=== PATIENT | female | born 1995 | race Caucasian/White ===

== ENCOUNTER 2017-01-31 16:22 | Emergency (ER) | payer OTHER, MEDICAID ==
[~2017-01-31] VITALS: Ht 162.6 cm; Wt 81.5 kg
[2017-01-31] MEDS ORDERED: LIDOCAINE HCL 2% JELLY 5ML ONE (16:56)
[2017-01-31] MEDS ORDERED: MORPHINE SULFATE 4 MG/ML CPJ (NOT FOR IM USE) IV ONE ×2 (16:57→17:30)
[2017-01-31] MEDS ORDERED: ONDANSETRON HCL 4MG/2ML VIAL ONE (16:58)
[2017-01-31] MEDS ORDERED: SODIUM CHLORIDE 0.9% 1,000 ML IV ONE (17:30)
[2017-01-31] MEDS ORDERED: ONDANSETRON HCL 4MG/2ML VIAL IV ONE (17:30)
[2017-01-31] MEDS ORDERED: LIDOCAINE HCL 2% JELLY 5ML TOP ONE (17:30)
[2017-01-31 17:40] VITALS: BP 106/58
[2017-01-31] MEDS ORDERED: SILVER SULFADIAZINE 1% CREAM 25GM TOP ONE (19:00)
== END 2017-01-31 21:46 | disposition home or self-care (01) ==
LOC: ER 19:13
DX: T21.03XA Burn of unspecified degree of upper back, initial encounter (principal); T79.8XXA Other early complications of trauma, initial encounter; X19.XXXA Contact with other heat and hot substances, initial encounter; Y93.89 Activity, other specified; Y92.89 Other specified places as the place of occurrence of the external cause; R06.02 Shortness of breath; R03.0 Elevated blood-pressure reading, without diagnosis of hypertension; M54.89 Other dorsalgia; G89.29 Other chronic pain
CPT/HCPCS: 16020; 96361; 96374; 96375; 99285; A4217; J2270; J2405; J7030; Z7610

== ENCOUNTER 2017-02-01 20:52 | Emergency (ER) | payer OTHER ==
[~2017-02-01] VITALS: Ht 162.6 cm; Wt 82.0 kg
[2017-02-01 20:55] VITALS: BP 126/63
[2017-02-01] MEDS ORDERED: BACITRACIN ZINC OINT UDPKT TOP ONE ×2 (22:30→22:45)
== END 2017-02-01 23:07 | disposition home or self-care (01) ==
LOC: ER 22:00
DX: Z48.00 Encounter for change or removal of nonsurgical wound dressing (principal)
CPT/HCPCS: 99283; Z7610

== ENCOUNTER 2017-02-04 15:27 | Emergency (ER) | payer OTHER, MEDICAID ==
[~2017-02-04] VITALS: Ht 162.6 cm; Wt 81.5 kg
[2017-02-04 16:00] VITALS: BP 117/70
[2017-02-04] MEDS ORDERED: CEFTRIAXONE SODIUM 250 MG/VIAL IM ONE (19:30)
[2017-02-04] MEDS ORDERED: SILVER SULFADIAZINE 1% CREAM 25GM TOP ONE (19:30)
[2017-02-04] MEDS ORDERED: TETANUS, DIPHTHERIA, PERTUSSIS VAC/PF 0.5ML (>7YR OLD) IM ONE (19:30)
== END 2017-02-04 20:23 | disposition home or self-care (01) ==
LOC: ER 16:24
DX: T21.24XD Burn of second degree of lower back, subsequent encounter (principal); X08.8XXD Exposure to other specified smoke, fire and flames, subsequent encounter
CPT/HCPCS: 16020; 90471; 90715; 96372; 99284; J0696; Z7610

== ENCOUNTER 2017-08-23 13:12 | Emergency (ER) | payer OTHER, MEDICAID ==
[~2017-08-23] VITALS: Ht 162.6 cm; Wt 84.0 kg
[2017-08-23] MEDS ORDERED: SODIUM CHLORIDE 0.9% 1,000 ML IV ONE (18:23)
[2017-08-23] MEDS ORDERED: KETOROLAC 30MG/ML VIAL IV STA (18:23)
[2017-08-23 18:40] LABS: BASOPHILS % 0.4 % (0.0-2.0); EOSINOPHILS % 1.3 % (0.0-5.0); HEMATOCRIT. 34.1 % (36.0-48.0); HEMOGLOBIN. 11.1 g/dL (12.0-16.0); LYMPHOCYTES % 30.3 % (20.0-50.0); MEAN CORPUSCULAR HEMOGLOBIN 25.1 pg (28.0-32.0); MEAN CORPUSCULAR VOLUME 76.8 fL (81.0-99.0); MEAN PLATELET VOLUME 7.7 fl (7.4-10.4); MONOCYTES % 7.4 % (2.0-8.0); NEUTROPHILS % 60.6 % (40.0-76.0); PLATELET 329 x1000/uL (130-400); RED BLOOD CELL COUNT 4.43 mill/uL (4.2-5.4); RED CELL DISTRIBUTION WIDTH 17.8 % (11.6-14.6)
[2017-08-23 18:45] LABS: CHLORIDE 103 mEq/L (98-107)
[2017-08-23 18:47] LABS: PROTHROMBIN TIME 10.6 sec (9.4-11.6)
[2017-08-23 18:49] LABS: CARBON DIOXIDE 27 mEq/L (21-32)
[2017-08-23 18:50] LABS: HCG SCREEN NEGATIVE
[2017-08-23 18:55] LABS: CLARITY URINE CLOUDY (CLEAR); COLOR URINE YELLOW (YELLOW); GLUCOSE URINE NEGATIVE (NEGATIVE); KETONES URINE NEGATIVE (NEGATIVE); LEUKOCYTE ESTERASE URINE 2+ (NEGATIVE); NITRITE URINE NEGATIVE (NEGATIVE); OCCULT BLOOD URINE NEGATIVE (NEGATIVE); PH URINE 5.5 (4.5-8.0); PROTEIN URINE NEGATIVE (NEGATIVE); SPECIFIC GRAVITY URINE 1.017 (1.005-1.030); UROBILINOGEN URINE 0.2 E.U./dL (0.2-1.0)
[2017-08-23 19:09] LABS: *AMPHETAMINES SCREEN URINE NEGATIVE (NEGATIVE); *BARBITURATES SCREEN URINE NEGATIVE (NEGATIVE); *BENZODIAZEPINES SCREEN URINE NEGATIVE (NEGATIVE); *COCAINE SCREEN URINE NEGATIVE (NEGATIVE); CANNABINOID URINE SCREEN NEGATIVE (NEGATIVE); METHADONE URINE SCREEN NEGATIVE (NEGATIVE); OPIATES URINE SCREEN NEGATIVE (NEGATIVE); PHENCYCLIDINE URINE SCREEN NEGATIVE (NEGATIVE)
[2017-08-23] MEDS ORDERED: KETOROLAC 30MG/ML VIAL IM ONE (20:30)
[2017-08-23 21:43] VITALS: BP 117/68
== END 2017-08-23 21:45 | disposition home or self-care (01) ==
LOC: ER 13:43
DX: N76.0 Acute vaginitis (principal)
CPT/HCPCS: 36415; 76830; 76856; 80053; 80305; 81001; 83690; 84703; 85025; 85610; 87210; 96361; 96374; 99285; J1885; J7030

== ENCOUNTER 2017-11-19 22:56 | Emergency (ER) | payer OTHER, MEDICAID ==
[~2017-11-19] VITALS: Ht 162.6 cm; Wt 86.0 kg
[2017-11-19 23:50] VITALS: BP 120/71
== END 2017-11-20 01:24 | disposition home or self-care (01) ==
LOC: ER 22:56
DX: J11.1 Influenza due to unidentified influenza virus with other respiratory manifestations (principal)
CPT/HCPCS: 99283

== ENCOUNTER 2018-01-07 22:06 | Emergency (ER) | payer OTHER, MEDICAID ==
[~2018-01-07] VITALS: Ht 162.6 cm; Wt 84.0 kg
[2018-01-08 00:47] LABS: CLARITY URINE CLEAR (CLEAR); COLOR URINE YELLOW (YELLOW); KETONES URINE NEGATIVE (NEGATIVE); LEUKOCYTE ESTERASE URINE TRACE (NEGATIVE); NITRITE URINE POSITIVE (NEGATIVE); OCCULT BLOOD URINE NEGATIVE (NEGATIVE); PROTEIN URINE NEGATIVE (NEGATIVE); UROBILINOGEN URINE 0.2 E.U./dL (0.2-1.0)
[2018-01-08 01:00] VITALS: BP 115/75
[2018-01-08] MEDS ORDERED: PHENAZOPYRIDINE HCL 200MG TABLET PO ONE (01:00)
[2018-01-08] MEDS ORDERED: CEPHALEXIN 500MG CAPSULE PO ONE (01:00)
== END 2018-01-08 01:13 | disposition home or self-care (01) ==
LOC: ER 22:06
DX: N39.0 Urinary tract infection, site not specified (principal)
CPT/HCPCS: 81003; 99283

== ENCOUNTER 2018-04-30 23:29 | Emergency (ER) | payer OTHER, MEDICAID ==
[~2018-04-30] VITALS: Ht 162.6 cm; Wt 82.0 kg
[2018-05-01] MEDS ORDERED: ACETAMINOPHEN 325MG TABLET PO ONE (03:00)
[2018-05-01 03:28] LABS: CLARITY URINE CLEAR (CLEAR); COLOR URINE YELLOW (YELLOW); KETONES URINE NEGATIVE (NEGATIVE); LEUKOCYTE ESTERASE URINE NEGATIVE (NEGATIVE); NITRITE URINE NEGATIVE (NEGATIVE); OCCULT BLOOD URINE NEGATIVE (NEGATIVE); PROTEIN URINE NEGATIVE (NEGATIVE); SPECIFIC GRAVITY URINE 1.007 (1.005-1.030); UROBILINOGEN URINE 0.2 E.U./dL (0.2-1.0)
[2018-05-01] MEDS ORDERED: IBUPROFEN 600MG TABLET PO ONE (03:30)
[2018-05-01 05:44] VITALS: BP 111/65
== END 2018-05-01 05:50 | disposition home or self-care (01) ==
LOC: ER 23:29
DX: R51 Headache (principal)
CPT/HCPCS: 81003; 81025; 99283; Z7610

== ENCOUNTER 2018-05-19 19:57 | Emergency (ER) | payer OTHER, MEDICAID ==
[~2018-05-19] VITALS: Ht 162.6 cm; Wt 84.0 kg
[2018-05-19] MEDS ORDERED: SODIUM CHLORIDE 0.9% 1,000 ML IV ONE (20:59)
[2018-05-19] MEDS ORDERED: ONDANSETRON HCL 4MG/2ML VIAL IV ONE (21:00)
[2018-05-19 22:26] LABS: BASOPHILS % 0.3 % (0.0-2.0); EOSINOPHILS % 1.4 % (0.0-5.0); HEMATOCRIT. 34.6 % (36.0-48.0); HEMOGLOBIN. 11.4 g/dL (12.0-16.0); LYMPHOCYTES % 25.6 % (20.0-50.0); MEAN CORPUSCULAR HEMOGLOBIN 25.9 pg (28.0-32.0); MEAN CORPUSCULAR VOLUME 78.7 fL (81.0-99.0); MEAN PLATELET VOLUME 7.6 fl (7.4-10.4); MONOCYTES % 10.1 % (2.0-8.0); NEUTROPHILS % 62.6 % (40.0-76.0); PLATELET 387 x1000/uL (130-400); RED BLOOD CELL COUNT 4.39 mill/uL (4.2-5.4)
[2018-05-19 22:28] LABS: CHLORIDE 107 mEq/L (98-107)
[2018-05-19 22:51] LABS: B-HCG QUANTITATIVE 2390 mIU/mL (<3)
[2018-05-19 23:38] LABS: CLARITY URINE CLEAR (CLEAR); COLOR URINE YELLOW (YELLOW); KETONES URINE 1+ (NEGATIVE); LEUKOCYTE ESTERASE URINE NEGATIVE (NEGATIVE); NITRITE URINE NEGATIVE (NEGATIVE); OCCULT BLOOD URINE NEGATIVE (NEGATIVE); PH URINE 5.5 (4.5-8.0); PROTEIN URINE NEGATIVE (NEGATIVE); SPECIFIC GRAVITY URINE 1.024 (1.005-1.030); UROBILINOGEN URINE 0.2 E.U./dL (0.2-1.0)
[2018-05-20 00:23] VITALS: BP 117/68
== END 2018-05-20 05:46 | disposition home or self-care (01) ==
LOC: ER 05-20 04:54
DX: O03.9 Complete or unspecified spontaneous abortion without complication (principal)
CPT/HCPCS: 36415; 76705; 76801; 76817; 80053; 81003; 81025; 84702; 85025; 96374; 99285; J2405; J7030; X7700; Z7610

== ENCOUNTER 2018-05-22 16:59 | Emergency (ER) | payer OTHER, MEDICAID ==
[~2018-05-22] VITALS: Ht 162.6 cm; Wt 84.0 kg
[2018-05-22 18:14] LABS: BASOPHILS % 0.4 % (0.0-2.0); EOSINOPHILS % 1.5 % (0.0-5.0); HEMATOCRIT. 34.1 % (36.0-48.0); HEMOGLOBIN. 11.2 g/dL (12.0-16.0); MEAN CORPUSCULAR HEMOGLOBIN 25.6 pg (28.0-32.0); MEAN CORPUSCULAR VOLUME 78.1 fL (81.0-99.0); MEAN PLATELET VOLUME 7.4 fl (7.4-10.4); MONOCYTES % 9.3 % (2.0-8.0); NEUTROPHILS % 63.8 % (40.0-76.0); PLATELET 389 x1000/uL (130-400); RED BLOOD CELL COUNT 4.37 mill/uL (4.2-5.4); RED CELL DISTRIBUTION WIDTH 17.4 % (11.6-14.6)
[2018-05-22 18:20] LABS: CHLORIDE 104 mEq/L (98-107)
[2018-05-22 18:24] LABS: CLARITY URINE CLEAR (CLEAR); COLOR URINE YELLOW (YELLOW); KETONES URINE NEGATIVE (NEGATIVE); LEUKOCYTE ESTERASE URINE 1+ (NEGATIVE); NITRITE URINE NEGATIVE (NEGATIVE); OCCULT BLOOD URINE NEGATIVE (NEGATIVE); PROTEIN URINE NEGATIVE (NEGATIVE); SPECIFIC GRAVITY URINE 1.015 (1.005-1.030); UROBILINOGEN URINE 0.2 E.U./dL (0.2-1.0)
[2018-05-22 18:44] LABS: B-HCG QUANTITATIVE 7562 mIU/mL (<3)
[2018-05-22] MEDS ORDERED: FAMOTIDINE 20MG TABLET PO ONE (19:00)
[2018-05-22] MEDS ORDERED: ACETAMINOPHEN 325MG TABLET PO ONE (19:00)
[2018-05-22] MEDS ORDERED: MAGNESIUM/ALUMINUM HYDROXIDE/SIMETHICONE 30ML UDC PO ONE (19:00)
[2018-05-22 21:40] VITALS: BP 120/59
== END 2018-05-22 21:50 | disposition home or self-care (01) ==
LOC: ER 16:59
DX: O20.0 Threatened abortion (principal); O23.41 Unspecified infection of urinary tract in pregnancy, first trimester; O99.011 Anemia complicating pregnancy, first trimester; O26.891 Other specified pregnancy related conditions, first trimester; R10.13 Epigastric pain; R03.0 Elevated blood-pressure reading, without diagnosis of hypertension; Z3A.00 Weeks of gestation of pregnancy not specified
CPT/HCPCS: 36415; 76801; 80053; 81003; 81025; 84702; 85025; 85610; 86850; 86900; 99285

== ENCOUNTER 2018-05-27 22:14 | Emergency (ER) | payer OTHER, MEDICAID ==
[~2018-05-27] VITALS: Ht 162.6 cm; Wt 84.0 kg
[2018-05-28] MEDS ORDERED: ACETAMINOPHEN 325MG TABLET PO STA (05:06)
[2018-05-28] MEDS ORDERED: SODIUM CHLORIDE 0.9% 1,000 ML IV ONE (05:06)
[2018-05-28 05:41] LABS: CLARITY URINE CLEAR (CLEAR); COLOR URINE YELLOW (YELLOW); KETONES URINE NEGATIVE (NEGATIVE); LEUKOCYTE ESTERASE URINE NEGATIVE (NEGATIVE); NITRITE URINE NEGATIVE (NEGATIVE); OCCULT BLOOD URINE NEGATIVE (NEGATIVE); PROTEIN URINE NEGATIVE (NEGATIVE); SPECIFIC GRAVITY URINE 1.021 (1.005-1.030); UROBILINOGEN URINE 0.2 E.U./dL (0.2-1.0)
[2018-05-28 07:10] LABS: BASOPHILS % 0.5 % (0.0-2.0); EOSINOPHILS % 4.7 % (0.0-5.0); HEMATOCRIT. 32.2 % (36.0-48.0); HEMOGLOBIN. 10.8 g/dL (12.0-16.0); LYMPHOCYTES % 23.8 % (20.0-50.0); MEAN CORPUSCULAR HEMOGLOBIN 26.1 pg (28.0-32.0); MEAN CORPUSCULAR VOLUME 77.4 fL (81.0-99.0); MEAN PLATELET VOLUME 7.4 fl (7.4-10.4); MONOCYTES % 9.6 % (2.0-8.0); NEUTROPHILS % 61.4 % (40.0-76.0); PLATELET 343 x1000/uL (130-400); RED BLOOD CELL COUNT 4.16 mill/uL (4.2-5.4)
[2018-05-28 07:17] LABS: CHLORIDE 105 mEq/L (98-107)
[2018-05-28 07:40] LABS: B-HCG QUANTITATIVE 29044 mIU/mL (<3)
[2018-05-28 08:38] VITALS: BP 120/73
== END 2018-05-28 08:39 | disposition home or self-care (01) ==
LOC: ER 22:14
DX: O20.0 Threatened abortion (principal); R51 Headache; R42 Dizziness and giddiness; Z3A.01 Less than 8 weeks gestation of pregnancy
CPT/HCPCS: 36415; 76801; 76817; 80053; 81003; 81025; 83690; 84702; 85025; 93005; 96360; 99285; J7030

== ENCOUNTER 2018-08-11 17:52 | Emergency (ER) | payer OTHER, MEDICAID ==
[~2018-08-11] VITALS: Ht 167.6 cm; Wt 83.0 kg
[2018-08-11] MEDS ORDERED: ACETAMINOPHEN 325MG TABLET PO STA (20:53)
[2018-08-11] MEDS ORDERED: SODIUM CHLORIDE 0.9% 1,000 ML IV ONE (20:53)
[2018-08-11 21:34] LABS: BASOPHILS % 0.2 % (0.0-2.0); EOSINOPHILS % 0.4 % (0.0-5.0); HEMATOCRIT. 30.4 % (36.0-48.0); LYMPHOCYTES % 20.6 % (20.0-50.0); MEAN CORPUSCULAR VOLUME 75.7 fL (81.0-99.0); MEAN PLATELET VOLUME 7.6 fl (7.4-10.4); MONOCYTES % 6.2 % (2.0-8.0); NEUTROPHILS % 72.6 % (40.0-76.0); PLATELET 393 x1000/uL (130-400); RED BLOOD CELL COUNT 4.01 mill/uL (4.2-5.4); RED CELL DISTRIBUTION WIDTH 16.4 % (11.6-14.6)
[2018-08-11 21:37] LABS: CLARITY URINE CLEAR (CLEAR); COLOR URINE YELLOW (YELLOW); KETONES URINE NEGATIVE (NEGATIVE); LEUKOCYTE ESTERASE URINE TRACE (NEGATIVE); NITRITE URINE NEGATIVE (NEGATIVE); OCCULT BLOOD URINE NEGATIVE (NEGATIVE); PROTEIN URINE NEGATIVE (NEGATIVE); SPECIFIC GRAVITY URINE 1.003 (1.005-1.030); UROBILINOGEN URINE 0.2 E.U./dL (0.2-1.0)
[2018-08-11 21:40] LABS: INR 0.9; PROTHROMBIN TIME 9.2 sec (9.1-11.1)
[2018-08-11 21:42] LABS: HCG SCREEN POSITIVE
[2018-08-11 21:44] LABS: CHLORIDE 105 mEq/L (98-107)
[2018-08-12 01:02] VITALS: BP 98/56
== END 2018-08-12 01:02 | disposition home or self-care (01) ==
LOC: ER 17:52 → CANBEDREQ 08-12 08:42
DX: O26.892 Other specified pregnancy related conditions, second trimester (principal); R10.32 Left lower quadrant pain; R74.0 Nonspecific elevation of levels of transaminase and lactic acid dehydrogenase [LDH]; O99.012 Anemia complicating pregnancy, second trimester; Z3A.17 17 weeks gestation of pregnancy
CPT/HCPCS: 36415; 76770; 76805; 80053; 81003; 83605; 84145; 84703; 85025; 85610; 86850; 86900; 86901; 87040; 87077; 87086; 87186; 93005; 99285; J7030; Z7610

== ENCOUNTER 2018-10-20 19:00 | Observation (INO) | payer OTHER, MEDICAID ==
[~2018-10-20] VITALS: Ht 162.6 cm; Wt 91.6 kg
[2018-10-20] MEDS ORDERED: LACTATED RINGERS 1,000 ML IV ONE (20:00)
[2018-10-20] MEDS ORDERED: ACETAMINOPHEN 500MG TABLET PO ONE (20:00)
[2018-10-20] MEDS ORDERED: NITR100C PO (20:11)
[2018-10-20] MEDS ORDERED: PSEU-207 PO (20:11)
[2018-10-20] MEDS ORDERED: AM500 PO (20:11)
[2018-10-20] MEDS ORDERED: PNV1TABL50 PO (20:11)
[2018-10-20 21:11] LABS: CLARITY URINE CLEAR (CLEAR); COLOR URINE YELLOW (YELLOW); KETONES URINE NEGATIVE (NEGATIVE); LEUKOCYTE ESTERASE URINE 2+ (NEGATIVE); NITRITE URINE NEGATIVE (NEGATIVE); OCCULT BLOOD URINE TRACE (NEGATIVE); PROTEIN URINE NEGATIVE (NEGATIVE); SPECIFIC GRAVITY URINE 1.006 (1.005-1.030); UROBILINOGEN URINE 0.2 E.U./dL (0.2-1.0)
[2018-10-21] MEDS ORDERED: AMOXICILLIN 500 MG CAPSULE PO SCH (09:00)
== END 2018-10-20 23:20 | disposition home or self-care (01) ==
LOC: L&D 19:00
PROVIDERS: ADMIT Obstetrics & Gynecology; ATTEND Obstetrics & Gynecology
DX: O26.892 Other specified pregnancy related conditions, second trimester (principal); M54.5 Low back pain; Z3A.27 27 weeks gestation of pregnancy
CPT/HCPCS: 81003; 99281; G0378; 96360; 96361

== ENCOUNTER 2019-01-08 19:25 | Observation (INO) | payer MEDICAID ==
[~2019-01-08] VITALS: Ht 162.6 cm; Wt 94.3 kg
[~2019-01-08 19:25] MED LIST: AM500 PO; NITR100C PO; PNV1TABL50 PO; PSEU-207 PO
[2019-01-08] MEDS ORDERED: IRON-26 MT (21:03)
[2019-01-08] MEDS ORDERED: PREN-182 MT (21:03)
[2019-01-08] MEDS ORDERED: LACTATED RINGERS 1,000 ML IV SCH (21:33)
[2019-01-08 22:49] LABS: CLARITY URINE CLEAR (CLEAR); COLOR URINE YELLOW (YELLOW); KETONES URINE NEGATIVE (NEGATIVE); LEUKOCYTE ESTERASE URINE 1+ (NEGATIVE); NITRITE URINE NEGATIVE (NEGATIVE); OCCULT BLOOD URINE NEGATIVE (NEGATIVE); PROTEIN URINE NEGATIVE (NEGATIVE); SPECIFIC GRAVITY URINE 1.011 (1.005-1.030); UROBILINOGEN URINE 0.2 E.U./dL (0.2-1.0)
== END 2019-01-09 00:30 | disposition home or self-care (01) ==
LOC: MERGE 19:25 → 8 EST LDRP 19:25
PROVIDERS: ADMIT Obstetrics & Gynecology; ATTEND Obstetrics & Gynecology
DX: O36.8130 Decreased fetal movements, third trimester, not applicable or unspecified (principal); O26.893 Other specified pregnancy related conditions, third trimester; R10.30 Lower abdominal pain, unspecified; M54.5 Low back pain; Z3A.38 38 weeks gestation of pregnancy
CPT/HCPCS: 81003; 99281; G0378; 96372

== ENCOUNTER 2019-01-18 14:31 | Observation (INO) | payer OTHER, MEDICAID ==
[~2019-01-18] VITALS: Ht 162.6 cm; Wt 96.6 kg
[~2019-01-18 14:31] MED LIST changes: +IRON-26 MT; +PREN-182 MT
== END 2019-01-18 16:00 | disposition home or self-care (01) ==
LOC: MERGE 14:31 → 8 EST LDRP 14:31
PROVIDERS: ADMIT Specialist; ATTEND Specialist
DX: O26.893 Other specified pregnancy related conditions, third trimester (principal); R10.30 Lower abdominal pain, unspecified; M54.5 Low back pain; R42 Dizziness and giddiness; R51 Headache; R06.02 Shortness of breath; R35.0 Frequency of micturition; N89.8 Other specified noninflammatory disorders of vagina; O48.0 Post-term pregnancy; Z3A.40 40 weeks gestation of pregnancy
CPT/HCPCS: 99281; G0378

== ENCOUNTER 2019-01-19 07:15 | Inpatient (IN) | payer MEDICAID ==
[~2019-01-19] VITALS: Ht 160 cm; Wt 96.6 kg
[2019-01-19] MEDS ORDERED: DEXT 5%/LR + PITOCIN 20UNITS/L 1,000 ML IV SCH ×2 (07:59→09:55)
[2019-01-19] MEDS ORDERED: NALOXONE HCL 0.4 MG/ML 1ML VIAL IM PRN (08:00)
[2019-01-19] MEDS ORDERED: LIDOCAINE HCL 1% 20ML VIAL (Pyxis) INJ INFIL SCH (08:00)
[2019-01-19] MEDS ORDERED: METHYLERGONOVINE MALEATE 0.2 MG/ML IM PRN (08:00)
[2019-01-19] MEDS ORDERED: BUTORPHANOL TARTRATE 2 MG/ML VIAL IV PRN (08:00)
[2019-01-19] MEDS ORDERED: CARBOPROST TROMETHAMINE 250 MCG/ML AMPUL IM PRN (08:00)
[2019-01-19] MEDS: LACTATED RINGERS 1,000 ML IV SCH ×2 (08:33→09:02)
[2019-01-19 08:35] LABS: BASOPHILS % 0.4 % (0.0-2.0); EOSINOPHILS % 0.2 % (0.0-5.0); LYMPHOCYTES % 13.4 % (20.0-50.0); MEAN CORPUSCULAR HEMOGLOBIN 18.5 pg (28.0-32.0); MEAN CORPUSCULAR VOLUME 60.4 fL (81.0-99.0); MEAN PLATELET VOLUME 8.8 fl (7.4-10.4); MONOCYTES % 6.3 % (2.0-8.0); NEUTROPHILS % 79.7 % (40.0-76.0); PLATELET 359 x1000/uL (130-400); RED BLOOD CELL COUNT 4.31 mill/uL (4.2-5.4); RED CELL DISTRIBUTION WIDTH 19.7 % (11.6-14.6)
[2019-01-19 08:44] LABS: INR 0.9; PARTIAL THROMBOPLASTIN TIME 25.4 sec (23.4-31.0); PROTHROMBIN TIME 9.3 sec (9.1-11.1)
[2019-01-19] MEDS ORDERED: FENTANYL CITRATE/PF 50MCG/ML 2ML VIAL ONE (08:58)
[2019-01-19] MEDS ORDERED: SODIUM CHLORIDE 0.9% 10ML VIAL ONE (08:58)
[2019-01-19] MEDS ORDERED: BUPIVACAINE HCL/PF 0.25% (2.5MG/ML) 10ML ONE (08:58)
[2019-01-19] MEDS ORDERED: BUPIVACAINE HCL/NS/PF EPIDURAL 100 ML in SODIUM CHLORIDE 0.9% 100 ML EP NR (09:00)
[2019-01-19] MEDS ORDERED: BUPIVACAINE HCL/NS/PF EPIDURAL 100 ML EP ONE (09:02)
[2019-01-19 09:08] LABS: PLATELET ESTIMATE NORMAL
[2019-01-19] MEDS ORDERED: INFLUENZA VIRUS VACCINE(AFLURIA) 0.5ML SYR IM ONE (10:00)
[2019-01-19] MEDS ORDERED: RHO(D) IMMUNE GLOBULIN 300 MCG/SYR IM PRN (10:00)
[2019-01-19] MEDS ORDERED: TETANUS, DIPHTHERIA, PERTUSSIS VAC/PF 0.5ML (>7YR OLD) IM ONE (10:00)
[2019-01-19] MEDS ORDERED: HEMORRHOIDAL SUPP PR PRN (10:00)
[2019-01-19] MEDS ORDERED: IBUPROFEN 400MG TABLET PO PRN (10:00)
[2019-01-19] MEDS ORDERED: DIPHENHYDRAMINE 25MG CAPSULE PO PRN (10:00)
[2019-01-19] MEDS ORDERED: BISACODYL 10MG SUPP PR PRN (10:00)
[2019-01-19] MEDS ORDERED: GLYCERIN/WITCH HAZEL LEAF MEDICATED PAD TOP PRN (10:00)
[2019-01-19 10:15] LABS: BG BASE EXCESS -4.5 mmol/L (-2.0-2.0); BG BASE EXCESS -6.8 mmol/L (-2.0-2.0); BG FRACTION INSPIRED OXYGEN 21; BG HCO3 ACT 20.1 mmol/L (22.0-26.0); BG HCO3 ACT 23.2 mmol/L (22.0-26.0); BG PCO2 45.1 mmHg (35.0-45.0); BG PCO2 52.6 mmHg (35.0-45.0); BG PH 7.262 (7.350-7.450); BG PH 7.266 (7.350-7.450); BG PO2 < 30.3 mmHg (75.0-100.0); BG SAMPLE SITE CORD; BG VENT MODE ROOM AIR
[2019-01-19 12:00] VITALS: BP 103/60
[2019-01-19 12:45] VITALS: BP 110/65
[2019-01-19 12:55] LABS: HEPATITIS B SURFACE ANTIGEN NEGATIVE
[2019-01-19] MEDS: IBUPROFEN 800MG TABLET PO PRN ×2 (13:16→20:05)
[2019-01-19] MEDS: LANOLIN OINT 0.25 GM TUBE TOP PRN (13:16)
[2019-01-19] MEDS: SIMETHICONE 80MG TABLET CHEW PO SCH ×3 (13:17→20:04)
[2019-01-19] MEDS: BENZOCAINE/LANOLIN/ALOE VERA SPRAY TOP PRN (13:17)
[2019-01-19 15:04] VITALS: BP 109/66
[2019-01-19 16:45] LABS: CLARITY URINE CLOUDY (CLEAR); COLOR URINE YELLOW (YELLOW); KETONES URINE NEGATIVE (NEGATIVE); LEUKOCYTE ESTERASE URINE TRACE (NEGATIVE); NITRITE URINE NEGATIVE (NEGATIVE); OCCULT BLOOD URINE 3+ (NEGATIVE); PROTEIN URINE 1+ (NEGATIVE); UROBILINOGEN URINE 0.2 E.U./dL (0.2-1.0)
[2019-01-19 17:11] LABS: *AMPHETAMINES SCREEN URINE NEGATIVE (NEGATIVE); *BARBITURATES SCREEN URINE NEGATIVE (NEGATIVE); *BENZODIAZEPINES SCREEN URINE NEGATIVE (NEGATIVE); *COCAINE SCREEN URINE NEGATIVE (NEGATIVE); METHADONE URINE SCREEN NEGATIVE (NEGATIVE); OPIATES URINE SCREEN NEGATIVE (NEGATIVE)
[2019-01-19 17:12] LABS: CANNABINOID URINE SCREEN NEGATIVE (NEGATIVE); PHENCYCLIDINE URINE SCREEN NEGATIVE (NEGATIVE)
[2019-01-19 20:00] VITALS: BP 108/57
[2019-01-19] MEDS: DOCUSATE SODIUM 100MG CAPSULE PO SCH (20:04)
[2019-01-20] MEDS: ACETAMINOPHEN WITH CODEINE 300/30MG TABLET PO PRN ×2 (02:21→19:47)
[2019-01-20 04:00] VITALS: BP 104/62
[2019-01-20 07:15] LABS: BASOPHILS % 0.5 % (0.0-2.0); EOSINOPHILS % 0.3 % (0.0-5.0); HEMATOCRIT. 22.1 % (36.0-48.0); LYMPHOCYTES % 18.8 % (20.0-50.0); MEAN CORPUSCULAR HEMOGLOBIN 18.8 pg (28.0-32.0); MEAN CORPUSCULAR VOLUME 60.7 fL (81.0-99.0); MEAN PLATELET VOLUME 9.3 fl (7.4-10.4); MONOCYTES % 5.1 % (2.0-8.0); NEUTROPHILS % 75.3 % (40.0-76.0); PLATELET 322 x1000/uL (130-400); RED BLOOD CELL COUNT 3.64 mill/uL (4.2-5.4); RED CELL DISTRIBUTION WIDTH 19.9 % (11.6-14.6)
[2019-01-20 08:36] LABS: HEMOGLOBIN. 6.8 g/dL (12.0-16.0)
[2019-01-20] MEDS: FERROUS SULFATE 325MG TABLET PO SCH ×3 (09:19→19:46)
[2019-01-20] MEDS: PRENATAL VIT/FE FUMARATE/FA TABLET PO SCH (09:19)
[2019-01-20] MEDS: IBUPROFEN 800MG TABLET PO PRN ×2 (09:19→16:11)
[2019-01-20 10:02] VITALS: BP 114/60
[2019-01-20] MEDS: SIMETHICONE 80MG TABLET CHEW PO SCH ×3 (13:00→22:29)
[2019-01-20 15:50] VITALS: BP 103/64
[2019-01-20] MEDS: DOCUSATE SODIUM 100MG CAPSULE PO SCH (19:46)
[2019-01-20 20:30] VITALS: BP 105/68
[2019-01-21 04:00] VITALS: BP 112/66
[2019-01-21] MEDS: IBUPROFEN 800MG TABLET PO PRN (08:25)
[2019-01-21] MEDS: LANOLIN OINT 0.25 GM TUBE TOP PRN (08:26)
[2019-01-21] MEDS: PRENATAL VIT/FE FUMARATE/FA TABLET PO SCH (08:26)
[2019-01-21] MEDS: FERROUS SULFATE 325MG TABLET PO SCH (08:27)
[2019-01-21] MEDS: BENZOCAINE/LANOLIN/ALOE VERA SPRAY TOP PRN (08:27)
[2019-01-21] MEDS: SIMETHICONE 80MG TABLET CHEW PO SCH (08:27)
[2019-01-21 10:32] VITALS: BP 111/54
== END 2019-01-21 12:30 | disposition home or self-care (01) | DRG 560 ==
LOC: OBSVTOIN 07:15 → 8 EST LDRP 07:15 → MERGE 07:15 → 8EST 11:15
PROVIDERS: ADMIT Specialist; ATTEND Specialist
PROC: 0W8NXZZ Division of Female Perineum, External Approach (ICD-10-PCS; principal; 2019-01-19)
PROC: 10D07Z6 Extraction of Products of Conception, Vacuum, Via Natural or Artificial Opening (ICD-10-PCS; 2019-01-19)
PROC: 3E0R3BZ Introduction of Anesthetic Agent into Spinal Canal, Percutaneous Approach (ICD-10-PCS; 2019-01-19)
PROC: 00HU33Z Insertion of Infusion Device into Spinal Canal, Percutaneous Approach (ICD-10-PCS; 2019-01-19)
DX: O77.0 Labor and delivery complicated by meconium in amniotic fluid (principal); O99.344 Other mental disorders complicating childbirth; E03.9 Hypothyroidism, unspecified; O69.81X0 Labor and delivery complicated by cord around neck, without compression, not applicable or unspecified; O99.284 Endocrine, nutritional and metabolic diseases complicating childbirth; F41.8 Other specified anxiety disorders; Z3A.40 40 weeks gestation of pregnancy; Z37.0 Single live birth
CPT/HCPCS: 36415; 36600; 80305; 82805; 86592; 86703; 86762; 86850; 86900; 87340; 90715; 99281; J2590; J3010; J3490; A4315

== ENCOUNTER 2019-06-19 16:53 | Emergency (ER) | payer MEDICAID ==
[~2019-06-19] VITALS: Ht 162.6 cm; Wt 86.0 kg
[2019-06-19] MEDS ORDERED: IBUPROFEN 600MG TABLET PO ONE (17:30)
[2019-06-19 17:51] VITALS: BP 116/72
== END 2019-06-19 18:50 | disposition home or self-care (01) ==
LOC: ER 16:53
DX: J02.9 Acute pharyngitis, unspecified (principal)
CPT/HCPCS: 87070; 87430; 99282